=== PATIENT | female | born 1990 | race African-American/Black ===

== ENCOUNTER 2020-10-05 09:15 | Inpatient (IN) | payer OTHER ==
[2020-10-05 11:18] LABS: EPI CELLS 35 /uL (0-25.1); HYALINE CASTS 2 /uL (0-3.1); PH,URINE 6.5 (5.0-8.0); URINE APPEARANCE CLOUDY; URINE BACTERIA 4932 /uL (0-1359); URINE BILIRUBIN NEGATIVE (NEGATIVE); URINE COLOR YELLOW; URINE GLUCOSE (UA) NEGATIVE (NEGATIVE); URINE KETONE NEGATIVE (NEGATIVE); URINE LEUK ESTERASE 3+ (NEGATIVE); URINE NITRITE NEGATIVE (NEGATIVE); URINE PROTEIN TRACE (NEGATIVE); URINE RBC 29 /uL (0-23.9); URINE WBC 402 /uL (0-25.8)
[2020-10-05 11:30] LABS: COCAINE, UR NEGATIVE ng/ml (CUTOFF=300); METHADONE, UR NEGATIVE ng/ml (CUTOFF=300); PHENCYCLIDINE,URINE NEGATIVE ng/ml (CUTOFF=25); URINE AMPHETAMINES NEGATIVE ng/ml (CUTOFF=500)
[2020-10-05 11:31] LABS: OPIATES, URI NEGATIVE ng/ml (CUTOFF=300)
[2020-10-05 11:36] LABS: URINE BARBITURATES NEGATIVE ng/ml (CUTOFF=200)
[2020-10-05 11:37] LABS: URINE BENZODIAZEPINES NEGATIVE ng/ml (CUTOFF=200)
[2020-10-05] MEDS ORDERED: ELECTROLYTE-148 SOLN 500 ML IV ONE (12:04)
[2020-10-05] MEDS ORDERED: ELECTROLYTE-148 SOLN 1,000 ML IV SCH (12:15)
[2020-10-05 12:54] LABS: BASO % 0.4 % (0-2.0); EOS % 1.3 % (0-4.5); HEMATOCRIT 28.9 % (32.4-45.2); HEMOGLOBIN 9.3 GM/dL (10.7-15.3); LYMPH % 19.6 % (8-40); MCH 25.3 pg (25.7-33.7); MCHC 32.2 g/dl (32.0-36.0); MEAN CELL VOLUME 78.4 fl (80-96); MEAN PLT VOLUME 8.7 fl (7.5-11.1); MONO % 8.3 % (3.8-10.2); NEUT % 70.4 % (42.8-82.8); PLATELET COUNT 160 K/MM3 (134-434); RBC 3.69 M/mm3 (3.60-5.2); RDW 16.5 % (11.6-15.6); WHITE BLOOD COUNT 6.9 K/mm3 (4.0-10.0)
[2020-10-05 12:57] VITALS: BMI 29.0
[2020-10-05 13:13] LABS: INR 0.99 (0.83-1.09); PROTHROMBIN TIME (PATIENT) 12.2 SEC (9.7-13.0)
[2020-10-05] MEDS ORDERED: morphine SULFATE/PF 0.5 MG/ML (2cc Syringe - QUVA) ONE (13:13)
[2020-10-05] MEDS ORDERED: PROPOFOL 20 ML ONE (13:14)
[2020-10-05] MEDS ORDERED: SUCCINYLCHOLINE CHLORIDE 200 MG/10 ML SYRINGE ONE (13:14)
[2020-10-05] MEDS ORDERED: ePHEDrine SULFATE 50 MG/1 ML AMPULE ONE (13:18)
[2020-10-05 13:27] LABS: CALCIUM 8.1 mg/dL (8.5-10.1)
[2020-10-05 13:28] LABS: ALBUMIN 3.2 g/dl (3.4-5.0); BLOOD UREA NITROGEN 8.1 mg/dL (7-18)
[2020-10-05 13:31] LABS: CREATININE 0.5 mg/dL (0.55-1.3)
[2020-10-05 13:32] LABS: BILIRUBIN,TOTAL 0.4 mg/dL (0.2-1); TOT PROT 6.6 g/dl (6.4-8.2)
[2020-10-05 13:52] LABS: SYPHILIS W/ RPR CONF NON-REACTIVE (NONREACTIVE)
[2020-10-05 14:21] LABS: HIV INTERPRETATION NEGATIVE (NEGATIVE)
[2020-10-05 14:58] LABS: CORD HCO3 22.5 mmHg (20-29); CORD PCO2 49.3 mmHg (30-78); CORD pH 7.277 (7.14-7.44)
[2020-10-05 15:03] LABS: CORD HCO3 23.2 mmHg (20-29); CORD PCO2 45.8 mmHg (30-78); CORD pH 7.322 (7.14-7.44)
[2020-10-05] MEDS ORDERED: oxyCODONE HCL 5 MG TABLET PO PRN (15:03)
[2020-10-05] MEDS ORDERED: METHYLERGONOVINE MALEATE 0.2 MG/1 ML AMP IM PRN (15:03)
[2020-10-05] MEDS ORDERED: morphine SULFATE/PF 0.5 MG/ML (2cc Syringe - QUVA) EP ONE (15:07)
[2020-10-05 15:14] LABS: CORD HCO3 23.2 mmHg (20-29); CORD PCO2 48.6 mmHg (30-78); CORD pH 7.297 (7.14-7.44)
[2020-10-05] MEDS ORDERED: OXYTOCIN 20 UNITS in 0.9% NS 20 UNIT/1,000 ML INFUS.BAG IV SCH (15:15)
[2020-10-05 15:17] LABS: CORD BASE EXCESS -2.5 mmol/L (0-2); CORD HCO3 22.9 mmHg (20-29); CORD PCO2 41.8 mmHg (30-78); CORD pH 7.356 (7.14-7.44)
[2020-10-05] MEDS ORDERED: OXYTOCIN 20 UNITS in 0.9% NS 20 UNIT/1,000 ML INFUS.BAG IV ONE (16:18)
[2020-10-05] MEDS ORDERED: IBUPROFEN 800 MG/8 ML IJ IVPB ONE (16:29)
[2020-10-05] MEDS: IBUPROFEN 800 MG/8 ML IJ IVPB PRN ×2 (16:48→22:37)
[2020-10-05] MEDS: CEFAZOLIN 1 GM/D5W 1 GM/50 ML BAG IVPB SCH (18:13)
[2020-10-06] MEDS: CEFAZOLIN 1 GM/D5W 1 GM/50 ML BAG IVPB SCH ×2 (01:33→09:34)
[2020-10-06 09:25] LABS: BASO % 0.2 % (0-2.0); EOS % 0.8 % (0-4.5); MCH 25.2 pg (25.7-33.7); MCHC 31.8 g/dl (32.0-36.0); MEAN CELL VOLUME 79.2 fl (80-96); MEAN PLT VOLUME 9.3 fl (7.5-11.1); MONO % 6.8 % (3.8-10.2); NEUT % 84.2 % (42.8-82.8); PLATELET COUNT 140 K/MM3 (134-434); RBC 3.16 M/mm3 (3.60-5.2); RDW 16.6 % (11.6-15.6); WHITE BLOOD COUNT 12.1 K/mm3 (4.0-10.0)
[2020-10-06] MEDS: PRENATAL VITAMINS W/ FOLIC ACID TABLET (FP) PO SCH (09:34)
[2020-10-06] MEDS: ENOXAPARIN NA (PORCINE) 40 MG/0.4 ML DISP.SYRIN SQ SCH (09:34)
[2020-10-06] MEDS: SIMETHICONE 80 MG TAB.CHEW (FP) PO PRN (13:27)
[2020-10-06] MEDS: IBUPROFEN 600 MG TABLET (FP) PO PRN (13:27)
[2020-10-06] MEDS: ACETAMINOPHEN 325 MG TABLET (FP) PO PRN (13:28)
[2020-10-06] MEDS ORDERED: BISACODYL 10 MG SUPP.RECT RC PRN (15:04)
[2020-10-06] MEDS: FERROUS SO4 325 MG TABLET (FP) PO SCH (21:21)
[2020-10-07] MEDS: ACETAMINOPHEN 325 MG TABLET (FP) PO PRN ×3 (02:50→20:22)
[2020-10-07] MEDS: SIMETHICONE 80 MG TAB.CHEW (FP) PO PRN ×3 (02:50→20:22)
[2020-10-07] MEDS: IBUPROFEN 600 MG TABLET (FP) PO PRN ×3 (02:50→20:23)
[2020-10-07] MEDS: FERROUS SO4 325 MG TABLET (FP) PO SCH ×2 (09:44→21:31)
[2020-10-07] MEDS: ENOXAPARIN NA (PORCINE) 40 MG/0.4 ML DISP.SYRIN SQ SCH (09:44)
[2020-10-07] MEDS: PRENATAL VITAMINS W/ FOLIC ACID TABLET (FP) PO SCH (09:44)
[2020-10-07] MEDS: SENNOSIDES/DOCUSATE COMBO (SENNA PLUS) TABLET (UD) PO PRN (20:21)
[2020-10-08] MEDS: IBUPROFEN 600 MG TABLET (FP) PO PRN ×4 (04:07→23:55)
[2020-10-08] MEDS: ACETAMINOPHEN 325 MG TABLET (FP) PO PRN ×4 (04:07→23:55)
[2020-10-08 08:32] LABS: BASO % 0.2 % (0-2.0); EOS % 2.1 % (0-4.5); HEMATOCRIT 19.3 % (32.4-45.2); LYMPH % 17.6 % (8-40); MCH 25.9 pg (25.7-33.7); MEAN CELL VOLUME 78.5 fl (80-96); MEAN PLT VOLUME 8.7 fl (7.5-11.1); MONO % 8.7 % (3.8-10.2); NEUT % 71.4 % (42.8-82.8); PLATELET COUNT 165 K/MM3 (134-434); RBC 2.46 M/mm3 (3.60-5.2); RDW 16.5 % (11.6-15.6)
[2020-10-08 08:37] LABS: HEMOGLOBIN 6.4 GM/dL (10.7-15.3)
[2020-10-08] MEDS: ENOXAPARIN NA (PORCINE) 40 MG/0.4 ML DISP.SYRIN SQ SCH (09:53)
[2020-10-08] MEDS: FERROUS SO4 325 MG TABLET (FP) PO SCH ×2 (09:53→21:02)
[2020-10-08] MEDS: PRENATAL VITAMINS W/ FOLIC ACID TABLET (FP) PO SCH (09:53)
[2020-10-08] MEDS: SIMETHICONE 80 MG TAB.CHEW (FP) PO PRN ×3 (10:00→23:54)
[2020-10-08] MEDS: SENNOSIDES/DOCUSATE COMBO (SENNA PLUS) TABLET (UD) PO PRN (19:46)
[2020-10-09 08:13] LABS: BASO % 0.2 % (0-2.0); EOS % 1.9 % (0-4.5); HEMATOCRIT 27.4 % (32.4-45.2); HEMOGLOBIN 9.2 GM/dL (10.7-15.3); LYMPH % 18.2 % (8-40); MCH 27.1 pg (25.7-33.7); MCHC 33.4 g/dl (32.0-36.0); MEAN PLT VOLUME 8.6 fl (7.5-11.1); MONO % 6.3 % (3.8-10.2); NEUT % 73.4 % (42.8-82.8); PLATELET COUNT 192 K/MM3 (134-434); RBC 3.38 M/mm3 (3.60-5.2); RDW 16.3 % (11.6-15.6); WHITE BLOOD COUNT 10.4 K/mm3 (4.0-10.0)
[2020-10-09] MEDS: IBUPROFEN 600 MG TABLET (FP) PO PRN (09:19)
[2020-10-09] MEDS: ENOXAPARIN NA (PORCINE) 40 MG/0.4 ML DISP.SYRIN SQ SCH (09:19)
[2020-10-09] MEDS: FERROUS SO4 325 MG TABLET (FP) PO SCH (09:19)
[2020-10-09] MEDS: PRENATAL VITAMINS W/ FOLIC ACID TABLET (FP) PO SCH (09:19)
[2020-10-09] MEDS: ACETAMINOPHEN 325 MG TABLET (FP) PO PRN (09:20)
[2020-10-09 11:53] VITALS: BP 112/68; PULSE 65; TEMP 98.2
== END 2020-10-09 16:45 | disposition home or self-care (01) | DRG 540 ==
LOC: JDEL 09:15 → JLDR 11:55 → J3W 17:00
PROVIDERS: ADMIT Obstetrics & Gynecology; ATTEND Obstetrics & Gynecology
PROC: 10D00Z1 Extraction of Products of Conception, Low, Open Approach (ICD-10-PCS; 2020-10-05)
PROC: 30233N1 Transfusion of Nonautologous Red Blood Cells into Peripheral Vein, Percutaneous Approach (ICD-10-PCS; principal; 2020-10-08)
DX: O30.043 Twin pregnancy, dichorionic/diamniotic, third trimester (principal); Z3A.37 37 weeks gestation of pregnancy; Z37.2 Twins, both liveborn; O32.1XX1 Maternal care for breech presentation, fetus 1; O32.2XX2 Maternal care for transverse and oblique lie, fetus 2; O90.81 Anemia of the puerperium; D50.9 Iron deficiency anemia, unspecified; O99.344 Other mental disorders complicating childbirth; F31.9 Bipolar disorder, unspecified; Z59.0 Homelessness
CPT/HCPCS: 36415; 36430; 36600; 59025; 80053; 80307; 81003; 82803; 85025; 85610; 85730; 86762; 86780; 86850; 86900; 86901; 86922; 87340; 87389; 88307-TC; C9803; P9058; U0003; U0005